=== PATIENT | female | born 1990 | race African-American/Black ===

== ENCOUNTER 2017-03-11 11:32 | Observation (INO) | payer MEDICAID ==
[~2017-03-11] VITALS: Ht 162.6 cm; Wt 78.2 kg
[~2017-03-11 11:32] MED LIST: AMOX875 PO; MACR100C PO; METO10TA PO; MMW SWISH-SPIT; PREN0.01 PO
[2017-03-11 12:02] VITALS: BP 103/70; PULSE 79; RESP 18; TEMP 97.8; O2SAT 98
[2017-03-11] MEDS ORDERED: ONDANSETRON ODT 4 MG TAB PO ONE (12:15)
[2017-03-11 12:51] LABS: AUTOMATED NEUTROPHIL # 5.7 TH/MM3 (1.8-7.7); BASOPHIL % 0.4 % (0.0-2.0); HEMATOCRIT 33.7 % (35.0-46.0); HEMOGLOBIN 10.6 GM/DL (11.6-15.3); LYMPH % 9.7 % (9.0-44.0); LYMPHOCYTE # 0.7 TH/MM3 (1.0-4.8); MEAN CELL VOLUME 68.8 FL (80.0-100.0); MEAN CORPUSCULAR HEMOGLOBIN 21.6 PG (27.0-34.0); MEAN CORPUSCULAR HGB CONC 31.5 % (32.0-36.0); MEAN PLATELET VOLUME 8.6 FL (7.0-11.0); MONO % 5.2 % (0.0-8.0); MONOCYTE # 0.3 TH/MM3 (0-0.9); NEUT % 84.7 % (16.0-70.0); PLATELET COUNT 300 TH/MM3 (150-450); RED CELL DISTRIBUTION WIDTH 21.8 % (11.6-17.2); WHITE BLOOD COUNT 6.7 TH/MM3 (4.0-11.0)
[2017-03-11 12:56] LABS: BACTERIA, URINE MOD /hpf; BILIRUBIN, URINE NEG (NEG); BLOOD, URINE NEG (NEG); GLUCOSE,URINE NEG (NEG); HYALINE CAST, URINE 1 /lpf (RARE); KETONE, URINE 150 mg/dL (NEG); MUCUS URINE FEW /lpf (OCC); NITRITE,URINE NEG (NEG); PH, URINE 8.5 (5.0-8.5); SQUAMOUS EPITHELIAL CELL URINE 19 /hpf (0-5); URINE COLOR YELLOW (YELLW/STRAW); URINE LEUKOCYTE ESTERASE MOD (NEG)
[2017-03-11 13:15] VITALS: BP 120/71; PULSE 71; RESP 22; TEMP 97.7; O2SAT 100
[2017-03-11 13:26] LABS: CHLORIDE 109 MEQ/L (98-107); SODIUM (NA) 137 MEQ/L (136-145)
[2017-03-11 14:13] LABS: ALBUMIN 3.7 GM/DL (3.4-5.0); ALKALINE PHOSPHATASE 52 U/L (45-117); ALT (GPT) 19 U/L (10-53); AST (GOT) 10 U/L (15-37); BLOOD UREA NITROGEN 7 MG/DL (7-18); GLUCOSE,RANDOM 106 MG/DL (74-106); LIPASE 90 U/L (73-393); TOTAL BILIRUBIN ADULT 0.5 MG/DL (0.2-1.0); TOTAL PROTEIN 7.4 GM/DL (6.4-8.2)
[2017-03-11 14:25] LABS: BICARBONATE 16.8 MEQ/L (21.0-32.0); CALCIUM 8.7 MG/DL (8.5-10.1); CREATININE 0.64 MG/DL (0.50-1.00); GLOMERULAR FILTRATION RATE 134 ML/MIN (>89)
[2017-03-11] MEDS ORDERED: ONDANSETRON HCL 4 MG/2 ML VIAL IV ONE (14:45)
[2017-03-11] MEDS ORDERED: SODIUM CHLOR 0.9% 1000 ML INJ 1,000 ML IV ONE ×2 (14:45)
[2017-03-11] MEDS ORDERED: ACETAMINOPHEN 1000 MG/100 ML 100 ML IV ONE (14:45)
--- NOTE | 2017-03-11 15:07 | PD ---
HPI Chief Complaint: GI Complaint Time Seen by Provider: 14:04 Travel History International Travel<30 days: No Contact w/Intl Traveler<30days: No Traveled to known affect area: No History of Present Illness HPI Is a 26-year-old woman who presents to the emergency department complaining of abdominal pain. She states that nausea vomiting diarrhea starting about 8 PM last night. She had positive bedside . She did not realize she was . She denies any vaginal bleeding or vaginal discharge. She weighs of some generalized crampy abdominal pain. No definite sick contacts. She states she feels very dehydrated and has severe pain that she attributed to dehydration. She otherwise had been feeling generally well and healthy. No other complaints. History Past Medical History Medical History: Denies Significant Hx LMP: 01/30/17 : 3 Para: 2 Social History Alcohol Use: No Tobacco Use: No Allergies-Medications (Allergen,Severity, Reaction): Coded Allergies: house dust (Unverified Allergy, Intermediate, SINUSITIS, 10/08/16) Fish Containing Products (Unverified Allergy, Unknown, Anaphylaxis, ) Reported Meds & Prescriptions Reported Meds & Active Scripts Active No Active Prescriptions or Reported Medications Review of Systems Except as stated in HPI: all other systems reviewed are Neg Physical Exam Narrative GENERAL: 18 year-old woman, appears uncomfortable, nontoxic. SKIN: Focused skin assessment warm/dry. HEAD: Atraumatic. Normocephalic. NECK: Trachea midline. No JVD. CARDIOVASCULAR: Regular rate and rhythm. No murmur appreciated. RESPIRATORY: No accessory muscle use. Clear to auscultation. Breath sounds equal bilaterally. GASTROINTESTINAL: Abdomen is flat and soft. Is no significant tenderness or guarding. MUSCULOSKELETAL: No obvious deformities. No edema. NEUROLOGICAL: Awake and alert. No obvious cranial nerve deficits. Motor grossly within normal limits. Normal speech. PSYCHIATRIC: Appropriate mood and affect; insight and judgment normal. Data Data Last Documented VS Vital Signs Date Time Temp Pulse Resp B/P (MAP) Pulse Ox O2 Delivery O2 Flow Rate FiO2 03/11/17 13:15 97.7 71 22 120/71 (87) 100 Room Air Orders Orders Complete Blood Count With Diff (03/11/17 12:06) Comprehensive Metabolic Panel (03/11/17 12:06) Lipase (03/11/17 12:06) Urinalysis - C+S If Indicated (03/11/17 12:06) Ed Urine Pregnancytest Poc (03/11/17 12:06) Ondansetron Odt (Zofran Odt) (03/11/17 12:15) Urine Culture (03/11/17 12:23) Beta Hcg (Quant/Titer) (03/11/17 14:31) Iv Access Insert/Monitor (03/11/17 14:31) Sodium Chlor 0.9% 1000 Ml Inj (Ns 1000 M (03/11/17 14:45) Sodium Chlor 0.9% 1000 Ml Inj (Ns 1000 M (03/11/17 14:45) Ondansetron Inj (Zofran Inj) (03/11/17 14:45) Acetaminophen 1000 Mg/100 Ml (Ofirmev 10 (03/11/17 14:45) Labs Laboratory Tests Test 03/11/17 12:23 White Blood Count 6.7 TH/MM3 Red Blood Count 4.90 MIL/MM3 Hemoglobin 10.6 GM/DL Hematocrit 33.7 % Mean Corpuscular Volume 68.8 FL Mean Corpuscular Hemoglobin 21.6 PG Mean Corpuscular Hemoglobin Concent 31.5 % Red Cell Distribution Width 21.8 % Platelet Count 300 TH/MM3 Mean Platelet Volume 8.6 FL Neutrophils (%) (Auto) 84.7 % Lymphocytes (%) (Auto) 9.7 % Monocytes (%) (Auto) 5.2 % Eosinophils (%) (Auto) 0.0 % Basophils (%) (Auto) 0.4 % Neutrophils # (Auto) 5.7 TH/MM3 Lymphocytes # (Auto) 0.7 TH/MM3 Monocytes # (Auto) 0.3 TH/MM3 Eosinophils # (Auto) 0.0 TH/MM3 Basophils # (Auto) 0.0 TH/MM3 CBC Comment DIFF FINAL Differential Comment Urine Color YELLOW Urine Turbidity HAZY Urine pH 8.5 Urine Specific [place] 1.022 Urine Protein 30 mg/dL Urine Glucose (UA) NEG mg/dL Urine Ketones 150 mg/dL Urine Occult Blood NEG Urine Nitrite NEG Urine Bilirubin NEG Urine Urobilinogen LESS THAN 2.0 MG/DL Urine Leukocyte Esterase MOD Urine RBC 1 /hpf Urine WBC 2 /hpf Urine Squamous Epithelial Cells 19 /hpf Urine Bacteria MOD /hpf Urine Hyaline Casts 1 /lpf Urine Mucus FEW /lpf Microscopic Urinalysis Comment CULTURE INDICATED Blood Urea Nitrogen 7 MG/DL Creatinine 0.64 MG/DL Random Glucose 106 MG/DL Total Protein 7.4 GM/DL Albumin 3.7 GM/DL Calcium Level 8.7 MG/DL Alkaline Phosphatase 52 U/L Aspartate Amino Transf (AST/SGOT) 10 U/L Alanine Aminotransferase (ALT/SGPT) 19 U/L Total Bilirubin 0.5 MG/DL Sodium Level 137 MEQ/L Potassium Level 3.5 MEQ/L Chloride Level 109 MEQ/L Carbon Dioxide Level 16.8 MEQ/L Anion Gap 11 MEQ/L Estimat Glomerular Filtration Rate 134 ML/MIN Lipase 90 U/L Human Chorionic Gonadotropin, Quant 10610 MIU/ML [facility] Medical Decision Making Medical Screen Exam Complete: Yes Emergency Medical Condition: Yes Interpretation(s) LABS: CBC remarkable for mild anemia. CMP remarkable for bicarbonate 16.8 Lipase normal. HC,068 UA with ketones, otherwise unremarkable. Differential Diagnosis Nausea vomiting of , gastroenteritis, food poisoning, food borne illness, dehydration, acidosis, other Narrative Course Medical decision-making 18 year-old woman, presents emergent from nausea vomiting diarrhea, very early , some generalized abdominal cramping, with moderate dehydration. Labs show a low bicarbonate. She looks uncomfortable but nontoxic. Given IV fluids , antiemetics, reassess. Scripts No Active Prescriptions or Reported Meds Rob Velez MD Mar 11, 2017 15:07
[2017-03-11] MEDS ORDERED: ONDANSETRON HCL 4 MG/2 ML VIAL IV PUSH ONE (17:00)
--- NOTE | 2017-03-11 17:29 | HHI.HP ---
[facility] Primary Care Physician No Primary Care Physician Admission Diagnosis nausea vomiting of , dehydration Diagnoses: (1) Hyperemesis gravidarum (2) Nausea and vomiting Diagnosis: Principal (3) Elevated serum hCG Diagnosis: Principal (4) Acidosis, metabolic Chief Complaint: Nausea and vomiting Travel History International Travel<30 Days: No Contact w/Intl Traveler <30 Da: No Traveled to Known Affected Are: No History of Present Illness Written by David Corrales, acting as scribe for Dr. Thompson on 03/11/17 at 17:28. 26-year-old female with no past medical history who presents to the emergency department with complaints of nausea and vomiting which began last night around 8 PM shortly after dinner. She reports that she just found out that she was 2 days ago. She reports 3 previous pregnancies which did have some nausea and vomiting involved however none as severe as this . She is also complaining of some abdominal tenderness. She denies any sick contacts, nobody at home is sick. Denies any fevers, endorses chills and some diarrhea since nausea began. She denies any cough, shortness of breath, or headaches. She denies taking any medications at home, does not establish with [employer] TE[employer]IC[employer], he has not yet started taking vitamin. She reports that in the past she was provided with IV medication and fluids for her nausea and vomiting during her pregnancies. At the moment of my examination patient is once again complaining of nausea. Review of Systems Constitutional: COMPLAINS OF: Chills Gastrointestinal: COMPLAINS OF: Diarrhea, Nausea, Vomiting Except as stated in HPI: all other systems reviewed are Neg Past Family Social History Past Medical History Denies past medical history. via Past Surgical History sections 3 Reported Medications Reported Meds & Active Scripts Active No Active Prescriptions or Reported Medications Allergies: Coded Allergies: house dust (Unverified Allergy, Intermediate, SINUSITIS, 10/08/16) Fish Containing Products (Unverified Allergy, Unknown, Anaphylaxis, ) Family History Denies family history. Social History Tobacco use: Denies Alcohol use: Denies Patient works as a nurses aide. Physical Exam Vital Signs Vital Signs Date Time Temp Pulse Resp B/P (MAP) Pulse Ox O2 Delivery O2 Flow Rate FiO2 03/11/17 13:15 97.7 71 22 120/71 (87) 100 Room Air 03/11/17 12:02 97.8 79 18 103/70 (81) 98 Physical Exam GENERAL: This is a well-nourished, well-developed patient, comfortable due to nausea. SKIN: No rashes, ecchymoses or lesions. Cool and dry. HEAD: Atraumatic. Normocephalic. No temporal or scalp tenderness. EYES: Pupils equal round and reactive. Extraocular motions intact. No scleral icterus. No injection or drainage. ENT: Nose without bleeding, purulent drainage or septal hematoma. Throat without erythema, tonsillar hypertrophy or exudate. Uvula midline. Airway patent. NECK: Trachea midline. No JVD or lymphadenopathy. Supple, nontender. CARDIOVASCULAR: Regular rate and rhythm without murmurs, gallops, or rubs. RESPIRATORY: Clear to auscultation. Breath sounds equal bilaterally. No wheezes , rales, or rhonchi. GASTROINTESTINAL: Abdomen soft, tenderness with light palpation. No guarding. MUSCULOSKELETAL: Extremities without clubbing, cyanosis, or edema. No joint tenderness, effusion, or edema noted. No calf tenderness. Negative Homans sign bilaterally. NEUROLOGICAL: Awake and alert. Cranial nerves II through XII intact. Motor and sensory grossly within normal limits. Five out of 5 muscle strength in all muscle groups. Normal speech. Laboratory Laboratory Tests Test 03/11/17 12:23 White Blood Count 6.7 Red Blood Count 4.90 Hemoglobin 10.6 Hematocrit 33.7 Mean Corpuscular Volume 68.8 Mean Corpuscular Hemoglobin 21.6 Mean Corpuscular Hemoglobin Concent 31.5 Red Cell Distribution Width 21.8 Platelet Count 300 Mean Platelet Volume 8.6 Neutrophils (%) (Auto) 84.7 Lymphocytes (%) (Auto) 9.7 Monocytes (%) (Auto) 5.2 Eosinophils (%) (Auto) 0.0 Basophils (%) (Auto) 0.4 Neutrophils # (Auto) 5.7 Lymphocytes # (Auto) 0.7 Monocytes # (Auto) 0.3 Eosinophils # (Auto) 0.0 Basophils # (Auto) 0.0 CBC Comment DIFF FINAL Differential Comment Urine Color YELLOW Urine Turbidity HAZY Urine pH 8.5 Urine Specific [place] 1.022 Urine Protein 30 Urine Glucose (UA) NEG Urine Ketones 150 Urine Occult Blood NEG Urine Nitrite NEG Urine Bilirubin NEG Urine Urobilinogen LESS THAN 2.0 Urine Leukocyte Esterase MOD Urine RBC 1 Urine WBC 2 Urine Squamous Epithelial Cells 19 Urine Bacteria MOD Urine Hyaline Casts 1 Urine Mucus FEW Microscopic Urinalysis Comment CULTURE INDICATED Blood Urea Nitrogen 7 Creatinine 0.64 Random Glucose 106 Total Protein 7.4 Albumin 3.7 Calcium Level 8.7 Alkaline Phosphatase 52 Aspartate Amino Transf (AST/SGOT) 10 Alanine Aminotransferase (ALT/SGPT) 19 Total Bilirubin 0.5 Sodium Level 137 Potassium Level 3.5 Chloride Level 109 Carbon Dioxide Level 16.8 Anion Gap 11 Estimat Glomerular Filtration Rate 134 Lipase 90 Human Chorionic Gonadotropin, Quant [id number] Date/Time Source Procedure Growth Status 03/11/17 12:23 Urine Random Urine Urine Culture Pending Received Result Diagram: 03/11/17 1223 03/11/17 1223 Caprini VTE Risk Assessment Caprini VTE Risk Assessment: No/Low Risk (score <= 1) Caprini Risk Assessment Model Point Value = 1 Point Value = 2 Point Value = 3 Point Value = 5 Age 41-60 Minor surgery BMI > 25 kg/m2 Swollen legs Varicose veins or History of unexplained or recurrent spontaneous Oral contraceptives or hormone replacement Sepsis (< 1 month) Serious lung disease, including pneumonia (< 1 month) Abnormal pulmonary function Acute myocardial infarction Congestive heart failure (< 1 month) History of inflammatory bowel disease Medical patient at bed rest Age 61-74 Arthroscopic surgery Major open surgery (> 45 min) Laparoscopic surgery (> 45 min) Malignancy Confined to bed (> 72 hours) Immobilizing plaster cast Central venous access Age >= 75 History of VTE Family history of VTE Factor V Leiden Prothrombin [id number] Lupus anticoagulant Anticardiolipin antibodies Elevated serum homocysteine Heparin-induced thrombocytopenia Other congenital or acquired thrombophilia Stroke (< 1 month) Elective arthroplasty Hip, pelvis, or leg fracture Acute spinal cord injury (< 1 month) Prophylaxis Regimen Total Risk Factor Score Risk Level Prophylaxis Regimen 0-1 Low Early ambulation 2 Moderate Order ONE of the following: *Sequential Compression Device (SCD) *Heparin 5000 units SQ BID 3-4 Higher Order ONE of the following medications: *Heparin 5000 units SQ TID *Enoxaparin/Lovenox 40 mg SQ daily (WT < 150 kg, CrCl > 30 mL/min) *Enoxaparin/Lovenox 30 mg SQ daily (WT < 150 kg, CrCl > 10-29 mL/min) *Enoxaparin/Lovenox 30 mg SQ BID (WT < 150 kg, CrCl > 30 mL/min) AND/OR *Sequential Compression Device (SCD) 5 or more Highest Order ONE of the following medications: *Heparin 5000 units SQ TID (Preferred with Epidurals) *Enoxaparin/Lovenox 40 mg SQ daily (WT < 150 kg, CrCl > 30 mL/min) *Enoxaparin/Lovenox 30 mg SQ daily (WT < 150 kg, CrCl > 10-29 mL/min) *Enoxaparin/Lovenox 30 mg SQ BID (WT < 150 kg, CrCl > 30 mL/min) AND *Sequential Compression Device (SCD) Assessment and Plan Problem List: (1) Hyperemesis gravidarum ICD Code: O21.0 - Mild hyperemesis gravidarum (2) Nausea and vomiting ICD Code: R11.2 - Nausea with vomiting, unspecified (3) Acidosis, metabolic ICD Code: E87.2 - Acidosis Assessment and Plan 26-year-old female with no past medical history who presents to the emergency department with complaints of nausea and vomiting which began last night around 8 PM shortly after dinner. Nausea and vomiting +HCG - Likely related to first trimester - Pelvic ultrasound ordered to confirm and establish gestation age. - CMP listed in the ED reviewed demonstrates wide 109, CO2 16.8 - Patient received 2 L of NS IV for hydration, along with 4 mg of Zofran, and 1,000mg of Acetaminophen IV for pain control. - Will admit patient to observation unit - Zofran as needed 4 mg every 6 hours - Tylenol when necessary for abdominal pain which is likely related to nausea and vomiting - Continue IV fluids 70ml/hr or hydration, clear liquid diet, advance as tolerated. - Recheck labs tomorrow - Consider starting vitamin tomorrow if patient is no longer experiencing nausea and vomiting. Microcytic anemia - CBC collected in the ED reviewed showing hemoglobin 10.6, hematocrit 33.7, microcytic consistent with iron deficiency anemia - Consider adding iron supplement tomorrow if patient is no longer nauseated. DVT prophylaxis - SCD's early ambulation This note was transcribed by nelson Corrales. I, Dr. Bam Thompson personally performed the history, physical exam, and medical decision making; and confirmed the accuracy of the information in the transcribed note. Authenticated by Dr. Bam Thompson on 03/11/17 at 17:28. Code Status Full code Discussed Condition With Patient, ED physician David Corrales Mar 11, 2017 17:28 Bam Thompson MD Mar 11, 2017 17:31
[2017-03-11 17:45] VITALS: BP 118/68; PULSE 70; RESP 16; O2SAT 100
[2017-03-11] MEDS ORDERED: ACETAMINOPHEN 325 MG TAB PO PRN (17:45)
[2017-03-11] MEDS ORDERED: NALOXONE HCL 0.4 MG/ML AMP IV PUSH PRN (17:45)
[2017-03-11] MEDS ORDERED: SODIUM CHLORIDE 0.9% FLUSH 10 ML FLUSH IV FLUSH PRN (17:45)
--- NOTE | 2017-03-11 17:52 | RADRPT ---
EXAM DATE/TIME: 03/11/2017 17:17 [place] COMPARISON: No previous studies available for comparison. INDICATIONS : Pelvic pain. LAB(S): Beta-hC MEDICAL HISTORY : . Asthma. SURGICAL HISTORY : section. ENCOUNTER: Subsequent ACUITY: 1 month PAIN SCORE: 5/10 LOCATION: Bilateral pelvis MEASUREMENTS: UTERUS: 11.1 x 7.6 x 5.5 cm ENDOMETRIAL STRIPE: 12 mm RIGHT OVARY: 3.0 x 2.9 x 2.4 cm LEFT OVARY: 4.3 x 3.0 x 2.0 cm FREE FLUID: No FINDINGS: UTERUS: Intrauterine gestational sac is identified with average estimated gestational sac diameter of 17.6 mm yielding estimated gestational age of 6 weeks one day. No normal internal architecture is identified . Specifically, no pole or yolk sac. RIGHT OVARY: Ovary contains no mass or significant cystic lesion. LEFT OVARY: Ovary contains no mass or significant cystic lesion. MISCELLANEOUS: No free fluid. CONCLUSION: 6 week intrauterine gestational sac without normal internal architecture. Appearance is worrisome for anembryonic Donnie Olvera MD on March 11, 2017 at 17:47 Board Certified Radiologist. This report was verified electronically.
[2017-03-11] MEDS: SODIUM CHLOR 0.9% 1000 ML INJ 1,000 ML IV SCH (18:18)
[2017-03-11 20:00] VITALS: BP 116/73; PULSE 69; RESP 20; TEMP 97.6; O2SAT 100
[2017-03-11] MEDS: ONDANSETRON HCL 4 MG/2 ML VIAL IVP PRN (20:19)
[2017-03-11] MEDS: SODIUM CHLORIDE 0.9% FLUSH 10 ML FLUSH IV FLUSH SCH (20:20)
[2017-03-12] VITALS: BP 115/71; PULSE 74; RESP 18; TEMP 98.4; O2SAT 100
[2017-03-12] MEDS ORDERED: PYRIDOXINE HCL 50 MG TAB PO PRN (01:45)
[2017-03-12] MEDS ORDERED: PILL SPLITTER OTHER PRN (02:15)
[2017-03-12] MEDS: ONDANSETRON HCL 4 MG/2 ML VIAL IVP PRN ×4 (02:19→19:56)
[2017-03-12 04:00] VITALS: BP 110/67; PULSE 74; RESP 18; TEMP 98.6; O2SAT 100
[2017-03-12] MEDS: PYRIDOXINE HCL 50 MG TAB PO PRN ×3 (05:16→23:28)
[2017-03-12] MEDS: SODIUM CHLORIDE 0.9% FLUSH 10 ML FLUSH IV FLUSH SCH ×2 (08:08→19:56)
[2017-03-12] MEDS: SODIUM CHLOR 0.9% 1000 ML INJ 1,000 ML IV SCH ×2 (08:09→21:27)
[2017-03-12 08:27] VITALS: BP 109/62; PULSE 75; RESP 20; TEMP 98.3; O2SAT 100
--- NOTE | 2017-03-12 11:09 | HHI.PR ---
Subjective Remarks Patient still having persistent nausea and vomiting overnight. Has not been able to eat much. Has been trying some sips of liquids. Reports diffuse abdominal pain from retching. No vaginal bleeding. Objective Vitals Vital Signs Date Time Temp Pulse Resp B/P (MAP) Pulse Ox O2 Delivery O2 Flow Rate FiO2 03/12/17 08:27 98.3 75 20 109/62 (78) 100 03/12/17 04:00 98.6 74 18 110/67 (81) 100 03/12/17 00:00 98.4 74 18 115/71 (86) 100 03/11/17 20:00 97.6 69 20 116/73 (87) 100 03/11/17 19:25 03/11/17 17:45 70 16 118/68 (85) 100 Room Air 03/11/17 13:15 97.7 71 22 120/71 (87) 100 Room Air 03/11/17 12:02 97.8 79 18 103/70 (81) 98 I/O 03/11/17 03/11/17 03/11/17 03/12/17 03/12/17 03/12/17 07:00 15:00 23:00 07:00 15:00 23:00 Intake Total 2100 ml Output Total 45 ml 200 ml Balance 2055 ml -200 ml Intake IV Total 2100 ml Output Emesis 45 ml 200 ml # Voids 4 4 # Bowel Movements 0 0 Result Diagram: 03/11/17 1223 03/11/17 1223 Imaging Last Impressions Pelvis Ultrasound 03/11/17 0000 Signed Impressions: Service Date/Time: Saturday, March 11, 2017 17:17 - CONCLUSION: 6 week intrauterine gestational sac without normal internal architecture. Appearance is worrisome for anembryonic Donnie Olvera MD Objective Remarks GENERAL: This is a well-nourished, well-developed patient, in no apparent distress. CARDIOVASCULAR: Normal rate and regular rhythm without murmurs, gallops, or rubs. RESPIRATORY: Good respiratory efforts. Breath sounds equal and clear to auscultation bilaterally. GASTROINTESTINAL: Abdomen soft, mild diffuse tenderness to palpation. No rebound tenderness. Normal active bowel sounds MUSCULOSKELETAL: Extremities without cyanosis, or edema. NEURO: Alert & Oriented x4 to person, place, time, situation. Moves all ext x4 PSYCH: Appropriate mood and affect. A/P Problem List: (1) Hyperemesis gravidarum ICD Code: O21.0 - Mild hyperemesis gravidarum (2) Nausea and vomiting ICD Code: R11.2 - Nausea with vomiting, unspecified (3) Acidosis, metabolic ICD Code: E87.2 - Acidosis Assessment and Plan 26-year-old female admitted to the hospital for intractable nausea and vomiting. Beta hCG positive. Pelvic ultrasound concerning for anembryonic . ?Anembryonic /+HCG: Pt was not aware of . Given abnormal findings on ultrasound and persistent nausea and vomiting. - Consult OB - Start vitamin as tolerated. Intractable nausea and vomiting: - Likely related to - Continue hydration with IV fluid. - Diet as tolerated - Antiemetics as needed Abdominal pain: - Tylenol as needed Microcytic anemia - Probably iron deficiency. - Obtain iron panel DVT prophylaxis - SCD's early ambulation Discharge Planning Pending improvement in symptoms and OB consult. Filippo Jon MD Mar 12, 2017 11:09
[2017-03-12 11:21] LABS: AUTOMATED NEUTROPHIL # 14.7 TH/MM3 (1.8-7.7); BASOPHIL % 0.2 % (0.0-2.0); HEMATOCRIT 31.6 % (35.0-46.0); HEMOGLOBIN 9.8 GM/DL (11.6-15.3); LYMPH % 7.3 % (9.0-44.0); LYMPHOCYTE # 1.3 TH/MM3 (1.0-4.8); MEAN CELL VOLUME 67.6 FL (80.0-100.0); MEAN CORPUSCULAR HEMOGLOBIN 21.1 PG (27.0-34.0); MEAN CORPUSCULAR HGB CONC 31.2 % (32.0-36.0); MONOCYTE # 1.2 TH/MM3 (0-0.9); NEUT % 85.5 % (16.0-70.0); PLATELET COUNT 250 TH/MM3 (150-450); RED BLOOD COUNT 4.67 MIL/MM3 (4.00-5.30); RED CELL DISTRIBUTION WIDTH 21.4 % (11.6-17.2); WHITE BLOOD COUNT 17.2 TH/MM3 (4.0-11.0)
[2017-03-12 11:32] LABS: ALBUMIN 3.5 GM/DL (3.4-5.0); ALT (GPT) 18 U/L (10-53); AST (GOT) 13 U/L (15-37); BICARBONATE 16.6 MEQ/L (21.0-32.0); BLOOD UREA NITROGEN 5 MG/DL (7-18); CALCIUM 8.4 MG/DL (8.5-10.1); CHLORIDE 106 MEQ/L (98-107); CREATININE 0.63 MG/DL (0.50-1.00); GLOMERULAR FILTRATION RATE 136 ML/MIN (>89); GLUCOSE,RANDOM 82 MG/DL (74-106); SODIUM (NA) 136 MEQ/L (136-145)
[2017-03-12 11:35] LABS: ALKALINE PHOSPHATASE 51 U/L (45-117); TOTAL BILIRUBIN ADULT 0.7 MG/DL (0.2-1.0); TOTAL PROTEIN 6.7 GM/DL (6.4-8.2)
[2017-03-12 12:00] VITALS: BP 113/56; PULSE 73; RESP 20; TEMP 98.5; O2SAT 100
[2017-03-12 12:07] LABS: LYMPHOCYTES 9 % (9-44); MONOCYTES 5 % (0-8); NEUTROPHIL # MANUAL DIFF 14.8 TH/MM3 (1.8-7.7); OVALOCYTES 1+ (NORMAL); POLYS (SEG NEUTROPHILS) 86 % (16-70)
[2017-03-12] MEDS: PRENATAL VITAMIN CHEWABLE TAB CHEW SCH (12:17)
[2017-03-12 16:00] VITALS: BP 116/67; PULSE 74; RESP 20; TEMP 99; O2SAT 100
--- NOTE | 2017-03-12 19:58 | PD.CONS ---
HPI Chief Complaint Nausea and vomiting 2 days Date Seen: Mar 12, 2017 Time Seen: 19:40 Travel History International Travel<30 Days: No Contact w/Intl Traveler<30Days: No Known Affected Area: No History of Present Illness HPI 26-year-old black female 6 weeks' gestation with increased nausea and vomiting last 2-3 days, minimal diarrhea noted. No fever chills of or other symptomatology. Denies bleeding or pelvic pain Weeks Gestation: 6 Para: 3 : 4 Last Menstrual Period: Jan 30, 2017 History Obstetric History Obstetric History 3 vaginal deliveries in [place] with Dr. Duckworth Social History Alcohol Use: No Tobacco Use: No Substance Abuse: No Allergies-Medications (Allergen,Severity, Reaction): Coded Allergies: house dust (Unverified Allergy, Intermediate, SINUSITIS, 10/08/16) Fish Containing Products (Unverified Allergy, Unknown, Anaphylaxis, ) Home Meds No Active Prescriptions or Reported Meds Review of Systems Gastrointestinal: Nausea, Vomiting Physical Exam Vital Signs Date Time Temp Pulse Resp B/P (MAP) Pulse Ox O2 Delivery O2 Flow Rate FiO2 03/12/17 16:00 99.0 74 20 116/67 (83) 100 03/12/17 12:00 98.5 73 20 113/56 (75) 100 03/12/17 08:27 98.3 75 20 109/62 (78) 100 03/12/17 04:00 98.6 74 18 110/67 (81) 100 03/12/17 00:00 98.4 74 18 115/71 (86) 100 03/11/17 20:00 97.6 69 20 116/73 (87) 100 Narrative GENERAL: Well-nourished, well-developed patient. SKIN: Warm and dry. HEAD: Normocephalic and atraumatic. EYES: No scleral icterus. No injection or drainage. ENT: No nasal drainage noted. Mucous membranes pink. Airway patent. NECK: Supple, trachea midline. No JVD. CARDIOVASCULAR: Regular rate and rhythm without murmurs, gallops, or rubs. RESPIRATORY: Breath sounds equal bilaterally. No accessory muscle use. BREASTS: Bilateral exam showed no masses , no retractions, no nipple discharge. ABDOMEN/GI: Abdomen soft, non-tender, bowel sounds present, no rebound, no guarding Gravid to [-6] weeks size Fundal Height: [6-] EXTREMITIES: No cyanosis or edema. BACK: Nontender without obvious deformity. No CVA tenderness. NEUROLOGICAL: Awake and alert. Motor and sensory grossly within normal limits. Five out of 5 muscle strength in all muscle groups. Normal speech. Data Data Orders Orders Pyridoxine (Vitamin B6) (03/12/17 01:45) Pyridoxine (Vitamin B6) (03/12/17 09:45) Pill Splitter (Pill Splitter) (03/12/17 02:15) Physician Name Changes (03/12/17 ) Consult Obstetrics (03/12/17 ) Oajbgcp-Ryr-Tt-Iron Prena Chew ( (03/12/17 11:15) Vitamin B12 (03/12/17 11:06) Folate, Serum (03/12/17 11:06) Ferritin (03/12/17 11:06) Iron/Tibc Profile (03/12/17 11:06) (Hub Use Only)Inp Phy Cons/Ref (03/12/17 ) Diet Regular Basic (03/12/17 Dinner) Labs Laboratory Tests Test 03/12/17 10:20 White Blood Count 17.2 Red Blood Count 4.67 Hemoglobin 9.8 Hematocrit 31.6 Mean Corpuscular Volume 67.6 Mean Corpuscular Hemoglobin 21.1 Mean Corpuscular Hemoglobin Concent 31.2 Red Cell Distribution Width 21.4 Platelet Count 250 Mean Platelet Volume 9.0 Neutrophils (%) (Auto) 85.5 Lymphocytes (%) (Auto) 7.3 Monocytes (%) (Auto) 7.0 Eosinophils (%) (Auto) 0.0 Basophils (%) (Auto) 0.2 Neutrophils # (Auto) 14.7 Lymphocytes # (Auto) 1.3 Monocytes # (Auto) 1.2 Eosinophils # (Auto) 0.0 Basophils # (Auto) 0.0 CBC Comment AUTO DIFF Differential Total Cells Counted 100 Neutrophils % (Manual) 86 Lymphocytes % 9 Monocytes % 5 Neutrophils # (Manual) 14.8 Differential Comment FINAL DIFF MANUAL Platelet Estimate NORMAL Platelet Morphology Comment NORMAL Ovalocytes 1+ Hematology Comments Blood Urea Nitrogen 5 Creatinine 0.63 Random Glucose 82 Total Protein 6.7 Albumin 3.5 Calcium Level 8.4 Alkaline Phosphatase 51 Aspartate Amino Transf (AST/SGOT) 13 Alanine Aminotransferase (ALT/SGPT) 18 Total Bilirubin 0.7 Sodium Level 136 Potassium Level 3.6 Chloride Level 106 Carbon Dioxide Level 16.6 Anion Gap 13 Estimat Glomerular Filtration Rate 136 Date/Time Source Procedure Growth Status 03/11/17 12:23 Urine Random Urine Urine Culture - Final 50-100,000 CFU/ML MIXED GRAM POSITIVE... Complete Ultrasound--shows intrauterine gestational sac, no yolk sac or pole identified ;sac is compressed somewhat, ovaries within normal limits adnexa normal This ultrasound finding is consistent with blighted ovum also known as anembryonic . However an extremely early normal intrauterine cannot be completely ruled out at this time repeat ultrasound in 1-2 weeks would be needed and similar findings of empty sac still documented then there is no question that would be a blighted ovum and could be treated accordingly MDM Interpretation(s) 26-year-old black female 6 weeks' gestation by an LMP of 01/30/17 who presents with hyperemesis nausea and vomiting last 2-3 days. She is been in the hospital for over 24 hours she has improved some with her symptoms. I reviewed dietary needs for this patient with her at the bedside discussing bland diet items that she can eat technique she continues when she eats to try and minimize nausea and vomiting, she is also encouraged to take her medications and they can include Zofran, Phenergan, Compazine or really any other antiemetic that it would be okay at this stage as a home prescription. She has a history of OB care with the [place] doctors Dr. Duckworth and his group; this group delivered her babies at [place] 3 times and she is planning when she begins her care to go to this group. Recommended the patient to contact their offices and she gets out of the hospital, lips them know that she was ]seen admitted here treated for hyperemesis and ultrasound shows quite likely an "empty sac " [blighted ovum\\] the patient still having severe nausea and vomiting time would highly recommend at that point getting a D&C to terminate the decrease the hormone level and thus decrease her nausea vomiting I also explained to the patient that she may start to have bleeding and cramping if it is an empty sac it is a miscarriage" waiting to happen" Plan The patient to avoid any foods or medicines that cause nausea vomiting I would leave off vitamins for the time being. If she wants to take a vitamin and then would recommend [place] chewable vitamin that's fine, she was instructed to stay on a bland diet, continue anti-nausea medication at home , would consider sending her home with Phenergan suppositories that way if she was to get to where she could not hold anything down by mouth she can use the rectal suppository 25 mg every 6-8 hours when necessary nausea vomiting and possibly avoid going to the hospital. She is to contact the [place] [facility] group and get in for another ultrasound and if it confirms blighted ovum then they should proceed with D&C Admitting diagnosis: nausea vomiting of , dehydration Diagnosis: hyperemesis gravidarum Condition: Stable Scripts No Active Prescriptions or Reported Meds Jarek Kauffman II, MD Mar 12, 2017 19:58
[2017-03-12 20:00] VITALS: BP 120/70; PULSE 75; RESP 20; TEMP 98.4; O2SAT 100
[2017-03-13] VITALS: BP 111/80; PULSE 68; RESP 18; TEMP 98.3; O2SAT 98
[2017-03-13] MEDS: ONDANSETRON HCL 4 MG/2 ML VIAL IVP PRN ×2 (02:14→08:08)
[2017-03-13 04:00] VITALS: BP 116/73; PULSE 67; RESP 18; TEMP 97.5; O2SAT 100
[2017-03-13 07:59] LABS: % SATURATION IRON PROFILE 4.8 % (20-50); IRON (FE) 20 MCG/DL (50-170); TOTAL IRON BINDING CAPACITY 416 MCG/DL (250-450)
[2017-03-13] MEDS: PRENATAL VITAMIN CHEWABLE TAB CHEW SCH (08:08)
[2017-03-13] MEDS: SODIUM CHLORIDE 0.9% FLUSH 10 ML FLUSH IV FLUSH SCH (08:09)
[2017-03-13 08:24] LABS: FERRITIN 10 NG/ML (8-252); FOLATE 12.9 NG/ML (3.1-17.5)
[2017-03-13 08:40] VITALS: BP 113/67; PULSE 69; RESP 20; TEMP 98.1; O2SAT 100
[2017-03-13] MEDS ORDERED: PROMETHAZINE HCL 25 MG SUPP RECTAL PRN (09:30)
[2017-03-13] MEDS ORDERED: PROM25SU RECTAL (11:10)
[2017-03-13] MEDS ORDERED: ZOFR4TAB PO (11:10)
--- NOTE | 2017-03-13 11:11 | HHI.DCPOC ---
Discharge Care Plan Diagnosis: (1) Nausea and vomiting (2) Empty gestational sac with ongoing (3) Hyperemesis gravidarum (4) Elevated serum hCG Goals to Promote Your Health * To prevent worsening of your condition and complications * To maintain your health at the optimal level Directions to Meet Your Goals Take your medications as prescribed Follow your dietary instruction Follow activity as directed Keep your appointments as scheduled Take your immunizations and boosters as scheduled If your symptoms worsen call your PCP, if no PCP go to Urgent Care Center or Emergency Room Smoking is Dangerous to Your Health. Avoid second hand smoke Call the 24-hour hour crisis hotline for domestic abuse at Filippo Jon MD Mar 13, 2017 11:11
--- NOTE | 2017-03-13 17:35 | HHI.DS ---
Discharge Summary Admission Date Mar 11, 2017 at 16:54 Discharge Date: Mar 13, 2017 Admitting Diagnosis nausea vomiting of , dehydration (1) Hyperemesis gravidarum ICD Code: O21.0 - Mild hyperemesis gravidarum (2) Nausea and vomiting ICD Code: R11.2 - Nausea with vomiting, unspecified (3) Acidosis, metabolic ICD Code: E87.2 - Acidosis Procedures None Brief History - From Admission History of present illness from the admitting physician 26-year-old female with no past medical history who presents to the emergency department with complaints of nausea and vomiting which began last night around 8 PM shortly after dinner. She reports that she just found out that she was 2 days ago. She reports 3 previous pregnancies which did have some nausea and vomiting involved however none as severe as this . She is also complaining of some abdominal tenderness. She denies any sick contacts, nobody at home is sick. Denies any fevers, endorses chills and some diarrhea since nausea began. She denies any cough, shortness of breath, or headaches. She denies taking any medications at home, does not establish with [facility], he has not yet started taking vitamin. She reports that in the past she was provided with IV medication and fluids for her nausea and vomiting during her pregnancies. At the moment of my examination patient is once again complaining of nausea. CBC/BMP: 03/12/17 1020 03/12/17 1020 Significant Findings Laboratory Tests Test 03/11/17 12:23 03/12/17 10:20 03/13/17 07:05 Hemoglobin 10.6 GM/DL (11.6-15.3) 9.8 GM/DL (11.6-15.3) Hematocrit 33.7 % (35.0-46.0) 31.6 % (35.0-46.0) Mean Corpuscular Volume 68.8 FL (80.0-100.0) 67.6 FL (80.0-100.0) Mean Corpuscular Hemoglobin 21.6 PG (27.0-34.0) 21.1 PG (27.0-34.0) Mean Corpuscular Hemoglobin Concent 31.5 % (32.0-36.0) 31.2 % (32.0-36.0) Red Cell Distribution Width 21.8 % (11.6-17.2) 21.4 % (11.6-17.2) Neutrophils (%) (Auto) 84.7 % (16.0-70.0) 85.5 % (16.0-70.0) Lymphocytes # (Auto) 0.7 TH/MM3 (1.0-4.8) Urine Turbidity HAZY (CLEAR) Urine Protein 30 mg/dL (NEG-TRACE) Urine Ketones 150 mg/dL (NEG) Urine Leukocyte Esterase MOD (NEG) Urine Bacteria MOD /hpf (NONE) Urine Mucus FEW /lpf (OCC) Aspartate Amino Transf (AST/SGOT) 10 U/L (15-37) 13 U/L (15-37) Chloride Level 109 MEQ/L (98-107) Carbon Dioxide Level 16.8 MEQ/L (21.0-32.0) 16.6 MEQ/L (21.0-32.0) Human Chorionic Gonadotropin, Quant 82408 MIU/ML (0-5) White Blood Count 17.2 TH/MM3 (4.0-11.0) Lymphocytes (%) (Auto) 7.3 % (9.0-44.0) Neutrophils # (Auto) 14.7 TH/MM3 (1.8-7.7) Monocytes # (Auto) 1.2 TH/MM3 (0-0.9) Neutrophils % (Manual) 86 % (16-70) Neutrophils # (Manual) 14.8 TH/MM3 (1.8-7.7) Ovalocytes 1+ (NORMAL) Blood Urea Nitrogen 5 MG/DL (7-18) Calcium Level 8.4 MG/DL (8.5-10.1) Iron Level 20 MCG/DL (50-170) Percent Iron Saturation 4.8 % (20-50) Imaging Last Impressions Pelvis Ultrasound 03/11/17 0000 Signed Impressions: Service Date/Time: Saturday, March 11, 2017 17:17 - CONCLUSION: 6 week intrauterine gestational sac without normal internal architecture. Appearance is worrisome for anembryonic Donnie Olvera MD PE at Discharge GENERAL: This is a well-nourished, well-developed patient, in no apparent distress. CARDIOVASCULAR: Normal rate and regular rhythm without murmurs, gallops, or rubs. RESPIRATORY: Good respiratory efforts. Breath sounds equal and clear to auscultation bilaterally. GASTROINTESTINAL: Abdomen soft, mild diffuse tenderness to palpation. No rebound tenderness. Normal active bowel sounds MUSCULOSKELETAL: Extremities without cyanosis, or edema. NEURO: Alert & Oriented x4 to person, place, time, situation. Moves all ext x4 PSYCH: Appropriate mood and affect. Pt update on day of discharge Patient reports she is feeling much better. Nausea vomiting have subsided. She tolerated breakfast today. She was seen by OB who advised outpatient follow -up Hospital Course 26-year-old female admitted to the hospital for intractable nausea and vomiting. Beta hCG positive. Pelvic ultrasound concerning showed empty gestational sac. The patient was admitted and treated with IV fluid and antiemetics. She was evaluated by obstetrics who advised outpatient follow-up with OB. Patient was counseled on the ultrasound findings and the possibility of miscarriage at home. She understands the need to follow-up with OB. Nausea and vomiting resolved. She is discharged home in good condition. Pt Condition on Discharge: Good Discharge Disposition: Discharge Home Discharge Time: <= 30 minutes Discharge Instructions DIET: Follow Instructions for: As Tolerated, No Restrictions Activities you can perform: Regular-No Restrictions Follow up Referrals: [facility] with Marly Gamble M.d. New Medications: Ondansetron (Zofran) 4 Mg Tab 4 MG PO Q6HR PRN for NAUSEA OR VOMITING, #10 TAB 0 Refills Promethazine Supp (Promethegan Supp) 25 Mg Supp 25 MG RECTAL Q6H PRN for NAUSEA OR VOMITING, #15 SUPP Filippo Jon MD Mar 13, 2017 17:35
== END 2017-03-13 12:20 | disposition home or self-care (01) ==
LOC: NEPD 11:32 → NEDA 16:54 → N05B 19:33
PROVIDERS: ADMIT Family Medicine; ATTEND Family Medicine
DX: O21.1 Hyperemesis gravidarum with metabolic disturbance (principal); O99.281 Endocrine, nutritional and metabolic diseases complicating pregnancy, first trimester; E86.0 Dehydration; O99.011 Anemia complicating pregnancy, first trimester; R19.7 Diarrhea, unspecified; R82.99 Other abnormal findings in urine; Z3A.01 Less than 8 weeks gestation of pregnancy
CPT/HCPCS: 76700; 80053; 81001; 82607; 82728; 82746; 83540; 83550; 83690; 84702; 84703; 85007; 85025; 85027; 87086; 96361; 96374; 96376; 99285; G0378; J0131; J2405; J7030